=== PATIENT | female | born 1935 | race Caucasian/White ===

== ENCOUNTER 2018-12-14 14:20 | Emergency (ER) | payer MEDICARE ==
[2018-12-14 14:57] LABS: Bacteria/HPF 1+ HPF (None Seen); Bilirubin Negative (Negative); Blood, Urine Negative (Negative); Clarity Clear (Clear); Glucose, Urine (Dipstick) Negative (Negative); Leukocyte Small (Negative); Nitrite Negative (Negative); Protein, Urine (Dipstick) Negative (Neg-Trace); RBC/HPF 0-3 HPF (0-3); Squamous Epithelial 0-3 HPF (0-3); Urobilinogen 0.2 mg/dL (Less than 2)
[2018-12-14] MEDS ORDERED: Acetaminophen 500 MG TAB ONE (15:05)
[2018-12-14 15:27] LABS: #Basophils 0.1 thou/uL (0.0-0.2); #Eosinphils 0.2 thou/uL (0.0-0.7); #Lymphocytes 2.6 thou/uL (1.20-3.40); #Monocytes 0.7 thou/uL (0.11-0.59); #Neutrophils 5.7 thou/uL (1.40-6.50); %Basophils 0.8 % (0.0-1.0); %Eosinophils 2.5 % (0.0-10.0); %Monocytes 7.8 % (0.0-10.0); %Neutrophils 60.9 % (42.0-75.0); Hemoglobin 12.5 g/dL (12.0-16.0); Mean Corpuscular HGB CONC 31.8 g/dL (32.0-36.0); Mean Corpuscular Hemoglobin 27.1 pg (27.0-31.0); Mean Corpuscular Volume 85.2 fL (78.0-98.0); Mean Platelet Volume 7.9 fL (7.4-10.4); Platelet Count 234 thou/uL (130-400); RBC Distribution Width 13.8 % (11.5-14.5); White Blood Cell (WBC) Count 9.3 thou/uL (4.8-10.8)
[2018-12-14 15:43] LABS: ALT (SGPT) 15 U/L (8-55); AST (SGOT) 22 U/L (5-34); Alkaline Phosphatase 81 U/L (40-110); Anion Gap 15 mmol/L (10-20); BUN (Urea Nitrogen) 18 mg/dL (9.8-20.1); Bilirubin, Total 0.6 mg/dL (0.2-1.2); Calc. Creatinine Clearance 0 mL/min (70-130); Calcium 10.5 mg/dL (7.8-10.44); Carbon Dioxide 29 mmol/L (23-31); Chloride 102 mmol/L (98-107); Estimated GFR-MDRD 50; Globulin 3.7 g/dL (2.4-3.5); Glucose 112 mg/dL (83-110); Lipase 35 U/L (8-78); Potassium 4.2 mmol/L (3.5-5.1); Protein, Total 7.7 g/dL (6.0-8.3); Sodium 142 mmol/L (136-145)
[2018-12-14] MEDS ORDERED: Lidocaine 1% PF 5 ML VIAL ONE (15:43)
[2018-12-14] MEDS ORDERED: cefTRIAXone\\ROCEPHIN 1 GM VIAL ONE (15:43)
--- NOTE | 2018-12-14 15:45 | CT ---
Exam: Abdomen CT without contrast Pelvic CT without contrast HISTORY: Left flank pain COMPARISON: None FINDINGS: Abdomen CT: Lung bases:Linear changes likely due to chronic scar/atelectasis with patchy groundglass opacities wh ich may represent a component of edema. Heart size: Normal heart size Aorta: Atherosclerosis. No periaortic fat stranding. Solid organs: Limited evaluation by the lack of IV contrast. Grossly no solid organ abnormality. Lymph nodes: No gastrohepatic, retrocrural or periportal lymphadenopathy Gallbladder: CT evidence of cholelithiasis without cholecystitis. Mesentery: No mass, lymphadenopathy, free air or free fluid. There are few scattered nonspecific mese nteric lymph nodes in the root of the abdominal mesentery. Kidneys: Bilaterally, no hydronephrosis, or perinephric fat stranding. Bilateral ureters have a dar l caliber. No hydroureter, periureteral fat stranding or ureterolithiasis. Calcifications in the left renal cortex. Punctate nonobstructive calculus in the lower pole the left kidney. Two separate h ypodensities emanating from the upper pole of the right kidney is too small to characterize but is statistically favored to be a cyst. Alimentary canal: Limited evaluation by the lack of oral contrast. Multiple normal caliber small deepa l loops. Unremarkable ileocecal junction. Normal caliber retrocecal appendix. Scattered fecal material in a nondistended, nondilated colon. Diverticulosis. No evidence of diverticulitis. Mucosal thickening of the sigmoid colon is presumed to be due to inadequate distention. CT PELVIS: No mass, adenopathy, free air or free fluid. Uterus and adnexal structures are unremarkable. Urinary bladder: No calculi. Grossly the mucosa is unremarkable. Osseous structures: No lytic or blastic lesions IMPRESSION: 1. No evidence of obstructive uropathy. 2. Nonobstructing calculus in the lower pole left kidney. 4. Diverticulosis, without evidence of diverticulitis. 3. Probable exophytic cysts emanating from the upper pole the right kidney. These are to small to fur ther characterize Transcribed Date/Time: 12/14/2018 3:53 PM
== END 2018-12-14 16:12 | disposition home or self-care (01) ==
LOC: SCSER 14:20
DX: N30.00 Acute cystitis without hematuria (principal); E11.9 Type 2 diabetes mellitus without complications; E78.5 Hyperlipidemia, unspecified; I10 Essential (primary) hypertension; Z79.84 Long term (current) use of oral hypoglycemic drugs; Z79.899 Other long term (current) drug therapy
CPT/HCPCS: 36415; 74176; 80053; 81003; 81015; 83690; 85025; 87086; 96372; J0696; J2001

== ENCOUNTER 2020-02-13 14:13 | Outpatient (CLI) | payer MEDICARE ==
--- NOTE | 2020-02-13 15:07 | RAD ---
TWO VIEW CHEST: HISTORY: Dyspnea. COMPARISON: 11/10/2019. FINDINGS: The lungs appear clear of focal infiltrate. Mild interstitial prominence is noted. No evidence of v ascular congestion. Heart size within normal range. No significant effusion. IMPRESSION: Some mild interstitial prominence appears chronic. No acute process identified. POS: [facility]
== END 2020-02-13 14:14 | disposition home or self-care (01) ==
LOC: BICRAD 14:13
PROVIDERS: ATTEND Internal Medicine Pulmonary Disease
DX: R06.00 Dyspnea, unspecified (principal); J84.89 Other specified interstitial pulmonary diseases
CPT/HCPCS: 71046